=== PATIENT | female | born 1990 | race Caucasian/White ===

== ENCOUNTER 2024-09-27 10:09 | Outpatient (CLI) | payer OTHER, SELFPAY ==
--- OUTSIDE RECORDS SUMMARY | 2024-09-27 11:05 | XMS_ITS | Data Portability ---
[facility] Address [address] [place] [address] Care Team Providers Care Fire Eater Name Role Phone ADEEL PALMER Box Car Bracer [phone] Assessment No assessment recorded. Plan of Treatment Reminders Order Date Submit Date Provider Last Modified By Organization Details Last Modified Time Details Appointments None recorded . Lab pap, IG + reflex HPV 2022 023 JULES [facility], [address], [place], [address], 3 09:36:23 pregnanc y test, urine 2020 021 [email or web address] In-Office Order, Internal Use Only DO Not Attach Compendium DO Not Attach Compendium, Do Not Delete/merge, [id number] 1 10:44:58 urinalys is, dipstick 2020 021 [email or web address] In-Office Order, Internal Use Only DO Not Attach Compendium DO Not Attach Compendium, Do Not Delete/merge, [id number] 1 10:44:58 CT + NG + TV, DNA, urine/sw ab 2019 020 JULES [facility], [address], [address], [place], [address], 0 20:07:43 pregnanc y test, urine 2019 020 [email or web address] In-Office Order, Internal Use Only DO Not Attach Compendium DO Not Attach Compendium, Do Not Delete/merge, [id number] 0 13:21:29 urinalys is, dipstick 2019 020 [facility], Internal Use Only DO Not Attach Compendium DO Not Attach Compendium, Do Not Delete/merge, [id number] 0 13:21:29 urinalys is, dipstick 2017 018 [facility] Order, Internal Use Only DO Not Attach Compendium DO Not Attach Compendium, Do Not Delete/merge, [id number] 8 14:03:51 pregnanc y test, urine 2017 018 [facility] Order, Internal Use Only DO Not Attach Compendium DO Not Attach Compendium, Do Not Delete/merge, [id number] 8 14:03:51 Referral None recorded . Procedures None recorded . Surgeries None recorded . Imaging None recorded . Medication Orders multivit vivas tablet 2020 021 [id number], [address], [place], [id number], 3 14:47:21 Calcium with Vitamin D 600 mg-10 mcg (400 unit) tablet 2020 021 [facility] #[id number], [address], [place], [id number], 3 14:47:03 multivit vivas tablet 2019 020 [facility] #[id number], [address], [place], [place], [id number], 3 14:47:21 Calcium with Vitamin D 600 mg-10 mcg (400 unit) tablet 2019 020 [facility] #[id number], [address], [place], [place], [id number], 3 14:47:03 Nexplano n 68 mg subderma l implant 2019 020 [facility] #[id number], [address], [place], [place], [id number], 0 13:41:07 multivit vivas tablet 2017 018 [id number], [address], [place], [address], 3 14:47:21 calcium 600 mg (as carbonat e)-vitam in D3 20 mcg (800 unit) tablet 2017 018 [id number], [address], [place], [address], 0 12:19:10 Patient TargetsNo targets recorded. Patient Instructions Encounter Date Encounter Id Patient Instructions Last Modified By Organization Details Last Modified Time 07/14/2017 [id number] When You Want to Lose Weight: Care Instructions mwasserman Not available 07/14/2017 10:45:15 06/25/2020 [id number] When You Want to Lose Weight: Care Instructions mwasserman Not available 06/25/2020 12:46:21 A healthy lifestyle: care instructions mwasserman Not available 06/25/2020 12:46:21 01/28/2023 [id number] Well Visit, Ages 18 to 65: Care Instructions Not available 01/28/2023 15:15:34 A healthy lifestyle: care instructions Not available 01/28/2023 15:15:34 Reason for Referral None Reported. Results Created Date Observation Date Name Description Value Unit Range Abnormal Flag Note LastModifiedBy Organization Detail LastModifiedTime 08/23/19 21 08/23/2020 urina lysis , dipst ick Leukocytes Negati ve Not Available In-Office Order Internal Use Only DO Not Attach Compendium DO Not Attach Compendium, Do Not Delete/merge, [id number] 08/23/2020 10:08:49 08/23/19 21 08/23/2020 urina lysis , dipst ick Nitrite negati ve Not Available In-Office Order Internal Use Only DO Not Attach Compendium DO Not Attach Compendium, Do Not Delete/merge, 08/23/2020 10:08:49 08/23/19 21 08/23/2020 urina lysis , dipst ick Urobilinogen .2 Not Available In-Of fice Order Internal Use Only DO Not Attach Compendium DO Not Attach Compendium, Do Not Delete/merge, 08/23/2020 10:08:49 08/23/19 21 08/23/2020 urina lysis , dipst ick Protein Negati ve Not Available In-Office Order Internal Use Only DO Not Attach Compendium DO Not Attach Compendium, Do Not Delete/merge, 08/23/2020 10:08:49 08/23/19 21 08/23/2020 urina lysis , dipst ick pH 7.0 Not Available In-Office Order Internal Use Only DO Not Attach Compendium DO Not Attach Compendium, Do Not Delete/merge, 08/23/2020 10:08:49 08/23/19 21 08/23/2020 urina lysis , dipst ick Blood Negati ve Not Available In-Office Order Internal Use Only DO Not Attach Compendium DO Not Attach Compendium, Do Not Delete/merge, 08/23/2020 10:08:49 08/23/19 21 08/23/2020 urina lysis , dipst ick Specific Medina 1.020 Not Available In-Off ice Order Internal Use Only DO Not Attach Compendium DO Not Attach Compendium, Do Not Delete/merge, 08/23/2020 10:08:49 08/23/19 21 08/23/2020 urina lysis , dipst ick Ketone Negati ve Not Available In-Office Order Internal Use Only DO Not Attach Compendium DO Not Attach Compendium, Do Not Delete/merge, 08/23/2020 10:08:49 08/23/19 21 08/23/2020 urina lysis , dipst ick Bilirubin Negati ve Not Available In-Office Order Internal Use Only DO Not Attach Compendium DO Not Attach Compendium, Do Not Delete/merge, [id number] 08/23/2020 10:08:49 08/23/19 21 08/23/2020 urina lysis , dipst ick Glucose Negati ve Not Available In-Office Order Internal Use Only DO Not Attach Compendium DO Not Attach Compendium, Do Not Delete/merge, [id number] 08/23/2020 10:08:49 08/23/19 21 08/23/2020 pregn mary test, urine HCG negati ve Not Available In-Office Order Internal Use Only DO Not Attach Compendium DO Not Attach Compendium, Do Not Delete/merge, [id number] 08/23/2020 10:08:35 06/25/20 20 06/25/2020 urina lysis , dipst ick Leukocytes Trace Not Available In-Offi ce Order Internal Use Only DO Not Attach Compendium DO Not Attach Compendium, Do Not Delete/merge, [id number] 06/25/2020 12:24:31 06/25/20 20 06/25/2020 urina lysis , dipst ick Nitrite negati ve Not Available In-Office Order Internal Use Only DO Not Attach Compendium DO Not Attach Compendium, Do Not Delete/merge, [id number] 06/25/2020 12:24:31 06/25/20 20 06/25/2020 urina lysis , dipst ick Urobilinogen .2 Not Available In-Of fice Order Internal Use Only DO Not Attach Compendium DO Not Attach Compendium, Do Not Delete/merge, [id number] 06/25/2020 12:24:31 06/25/20 20 06/25/2020 urina lysis , dipst ick Protein Negati ve Not Available In-Office Order Internal Use Only DO Not Attach Compendium DO Not Attach Compendium, Do Not Delete/merge, [id number] 06/25/2020 12:24:31 06/25/20 20 06/25/2020 urina lysis , dipst ick pH 7.0 Not Available In-Office Order Internal Use Only DO Not Attach Compendium DO Not Attach Compendium, Do Not Delete/merge, [id number] 06/25/2020 12:24:31 06/25/20 20 06/25/2020 urina lysis , dipst ick Blood Negati ve Not Available In-Office Order Internal Use Only DO Not Attach Compendium DO Not Attach Compendium, Do Not Delete/merge, [id number] 06/25/2020 12:24:31 06/25/20 20 06/25/2020 urina lysis , dipst ick Specific Medina 1.020 Not Available In-Off ice Order Internal Use Only DO Not Attach Compendium DO Not Attach Compendium, Do Not Delete/merge, [id number] 06/25/2020 12:24:31 06/25/20 20 06/25/2020 urina lysis , dipst ick Ketone Negati ve Not Available In-Office Order Internal Use Only DO Not Attach Compendium DO Not Attach Compendium, Do Not Delete/merge, [id number] 06/25/2020 12:24:31 06/25/20 20 06/25/2020 urina lysis , dipst ick Bilirubin Negati ve Not Available In-Office Order Internal Use Only DO Not Attach Compendium DO Not Attach Compendium, Do Not Delete/merge, [id number] 06/25/2020 12:24:31 06/25/20 20 06/25/2020 urina lysis , dipst ick Glucose Negati ve Not Available In-Office Order Internal Use Only DO Not Attach Compendium DO Not Attach Compendium, Do Not Delete/merge, [id number] 06/25/2020 12:24:31 06/25/20 20 06/25/2020 pregn mary test, urine HCG negati ve Not Available In-Office Order Internal Use Only DO Not Attach Compendium DO Not Attach Compendium, Do Not Delete/merge, [id number] 06/25/2020 12:24:14 07/14/19 18 07/14/2017 pregn mary test, urine HCG negati ve Not Available In-Office Order Internal Use Only DO Not Attach Compendium DO Not Attach Compendium, Do Not Delete/merge, [id number] 07/14/2017 10:33:36 07/14/19 18 07/14/2017 urina lysis , dipst ick Leukocytes Small Not Available In-Offi ce Order Internal Use Only DO Not Attach Compendium DO Not Attach Compendium, Do Not Delete/merge, [id number] 07/14/2017 10:32:53 07/14/19 18 07/14/2017 urina lysis , dipst ick Nitrite negati ve Not Available In-Office Order Internal Use Only DO Not Attach Compendium DO Not Attach Compendium, Do Not Delete/merge, 07/14/2017 10:32:53 07/14/19 18 07/14/2017 urina lysis , dipst ick Urobilinogen .2 Not Available In-Of fice Order Internal Use Only DO Not Attach Compendium DO Not Attach Compendium, Do Not Delete/merge, 07/14/2017 10:32:53 07/14/19 18 07/14/2017 urina lysis , dipst ick Protein Negati ve Not Available In-Office Order Internal Use Only DO Not Attach Compendium DO Not Attach Compendium, Do Not Delete/merge, 07/14/2017 10:32:53 07/14/19 18 07/14/2017 urina lysis , dipst ick pH 7.0 Not Available In-Office Order Internal Use Only DO Not Attach Compendium DO Not Attach Compendium, Do Not Delete/merge, 07/14/2017 10:32:53 07/14/19 18 07/14/2017 urina lysis , dipst ick Blood Large Not Available In-Office Order Internal Use Only DO Not Attach Compendium DO Not Attach Compendium, Do Not Delete/merge, 07/14/2017 10:32:53 07/14/19 18 07/14/2017 urina lysis , dipst ick Specific Medina 1.010 Not Available In-Off ice Order Internal Use Only DO Not Attach Compendium DO Not Attach Compendium, Do Not Delete/merge, 07/14/2017 10:32:53 07/14/19 18 07/14/2017 urina lysis , dipst ick Ketone Negati ve Not Available In-Office Order Internal Use Only DO Not Attach Compendium DO Not Attach Compendium, Do Not Delete/merge, 07/14/2017 10:32:53 07/14/19 18 07/14/2017 urina lysis , dipst ick Bilirubin Negati ve Not Available In-Office Order Internal Use Only DO Not Attach Compendium DO Not Attach Compendium, Do Not Delete/merge, [id number] 07/14/2017 10:32:53 07/14/19 18 07/14/2017 urina lysis , dipst ick Glucose Negati ve Not Available In-Office Order Internal Use Only DO Not Attach Compendium DO Not Attach Compendium, Do Not Delete/merge, [id number] 07/14/2017 10:32:53 05/12/20 17 05/12/2017 pregn mary test, urine HCG negati ve Not Available In-Office Order Internal Use Only DO Not Attach Compendium DO Not Attach Compendium, Do Not Delete/merge, [id number] 05/12/2017 15:26:18 06/25/20 20 06/26/2020 CT + NG + TV, DNA, urine /swab chlamydia by VANDANA Negati ve negati ve Not Available [facility] ([facility]) [address] [place], [address], 06/26/2020 20:07:43 06/25/20 20 06/26/2020 CT + NG + TV, DNA, urine /swab gonococcus by VANDANA Negati ve negati ve Not Available [facility] ([facility]) [address] [place], [address], 06/26/2020 20:07:43 06/25/20 20 06/26/2020 CT + NG + TV, DNA, urine /swab trich vag by VANDANA Negati ve negati ve Not Available [facility] ([facility]) [address] [place], [address], 06/26/2020 20:07:43 01/29/20 23 01/28/2023 IGP,A PTIMA HPV,A GE GDLN age gdln acog testing 30-65 Not Available [facility] ([facility]) [address] [place], [address], 02/02/2023 09:36:23 01/29/20 23 01/30/2023 IGP, APTIM A HPV, RFX 16/18 ,45 HPV aptima Negati ve negati ve This nucle ic acid ampli ficat ion test detec ts fourt een high- risk HPV types (16,1 8,31, 33,35 ,39,4 5,51, 52,56 ,58,5 9,66, 68) witho ut diffe renti ation . Not Available [facility] ([facility]) [address] [facility] [address], [place], [address], 02/02/2023 09:36:24 01/29/20 23 02/02/2023 IGP, APTIM A HPV, RFX 16/18 ,45 diagnosis: Areli bhardwaj NEGAT KENNY FOR INTRA EPITH ELIAL LESIO N OR RALPH FITZGERALD . Not Available [facility] ([facility]) [address] [facility], [place], [address], 02/02/2023 09:36:24 01/29/20 23 02/02/2023 IGP, APTIM A HPV, RFX 16/18 ,45 specimen adequacy: Areli bhardwaj Satis facto ry for evalu ation . Endoc ervic al and/o r squam ous metap lasti c cells (endo cervi candido compo nent) are prese nt. Not Available [facility] ([facility]) [address] [facility] [address], [place], [address], 02/02/2023 09:36:24 01/29/20 23 02/02/2023 IGP, APTIM A HPV, RFX 16/18 ,45 clinician provided ICD10: Areli bhardwaj Z01.4 19 Not Available [facility] ([facility]) [address] [facility] [address], [place], [address], 02/02/2023 09:36:24 01/29/20 23 02/02/2023 IGP, APTIM A HPV, RFX 16/18 ,45 performed by: Areli Willson , Cytot felicity bhardwaj Not Available [facility] ([facility]) [address] [place], [address], 02/02/2023 09:36:24 01/29/20 23 02/02/2023 IGP, APTIM A HPV, RFX 16/18 ,45 . . Not Available [facility] ([facility]) [address] [place], [address], 02/02/2023 09:36:24 01/29/20 23 02/02/2023 IGP, APTIM A HPV, RFX 16/18 ,45 note: Commen t The Pap smear is a scree blanca test desyeison jackson to aid in the detec tion of guevara ligna nt and malig nant condi tions of the uteri ne cervi x. It is not a diagn ostic proce dure and shoul d not be used as the sole means of detec ting cervi candido cance r. Both false -posi tive and false -nega tive repor ts do occur . Not Available [facility] ([facility]) [address] [facility] [address], [place], [address], 02/02/2023 09:36:24 01/29/2002/02/2023 IGP, APTIM A HPV, RFX 16/18 ,45 test methodology: Commen t This liqui d based ThinP rep(R ) pap test was scree manuel with the use of an image guide sally altamirano. Not Available [facility] ([facility]) [address] [facility], [place], [address], 02/02/2023 09:36:24 01/29/2002/02/2023 IGP, APTIM A HPV, RFX 16/18 ,45 HPV genotype reflex Commen t Crite marquis not met, HPV Genot ype not perfo rmed. Not Available [facility] ([facility]) [address] [place], [address], 02/02/2023 09:36:24 Result Notes None recorded. Problems Name Problem SNOMED Code Status Onset Date Resolution Date Notes Provider Name and Address Organization Details Recorded Time [facility] [id number] Active Jon Elliott dam[place], [place] [facility] 6 10:53:01 Hirsutism 682671710 Active Jon damon [place] - [facility] 6 10:53:01 83559040 Completed 201603/03/2017 ASIYA Agarwal - [facility] 7 12:12:00 Vitamin D deficiency 80696812 Active 2016 Jon damon [place] - [facility] 7 10:19:01 Vitamin D deficiency 89330153 Completed 2016 Jon damon [place] - [facility] 7 10:19:01 Abnormal progesteron e 383125645 Active 2016 Jon damon [place] - [facility] 7 10:19:01 Abnormal progesteron e 082241876 Completed 2016 ASIYA Agarwal - [facility] 7 10:19:01 RhD negative 682637467 Completed 2016 Jon damon [place] - [facility] 7 10:19:01 RhD negative 882640840 Active 2016 Jon damon [place] - [facility] 7 10:19:01 Female sterilizati on Completed 201604/27/2017 ASIYA Agarwal - [facility] 7 10:20:06 Obesity 898322889 Active 2016 Jon damon [place] - [facility] 7 13:22:20 Problem Notes None recorded. Procedures Surgical History Date Name Laterality Status Provider Name and Address Organization Details Recorded Time 01/29/20 23 Date of Last Pap Smear completed Kathy Yao [place] - [facility] 01/28/2023 14:45:33 06/25/20 20 Control Implant Replacement completed Jon Gallagher [place] - [facility] 06/25/2020 12:45:24 05/12/20 17 Control Implant Insertion completed Jon BRADEN - [facility] 05/12/2017 15:01:16 04/08/20 16 Control Implant Removal completed Jon BRADEN - [facility] 04/08/2016 10:55:06/07/20 15 Control Implant Replacement completed Jon Gallagher [place] - [facility] 06/07/2015 16:04:00 Imaging Results None recorded. Procedure Notes None recorded. Medical Equipment None Reported. Allergies Allergen ID Allergen Name Allergen Category Reaction Reaction Severity Criticality Documentation Date Start Date Code Code System Note Provider Name and Address Organization Details Recorded Time 21792 Tegretol medicatio n rash mild Not available 08/23/2015 9 RxNorm Not Available Not Available Not Available Medications Name Sig Start Date Stop Date Status Note LastModified by Organization Details LastModified Time multivitami n tablet Take 1 tablet every day by oral route. 01/28 completed Not Available Not Available Not Available neomycin-po lymyxin-hyd rocort 3.5 mg/mL-10,00 0 unit/mL-1 % ear solution INSTILL 4 DROPS INTO AFFECTED EAR(S) BY OTIC ROUTE 3 TIMES PER DAY FOR 7 DAYS 06/25 completed Not Available Not Available Not Available doxycycline hyclate 100 mg capsule TAKE 1 CAPSULE BY MOUTH TWICE A DAY FOR 7 DAYS active Not Available Not Available No t Available ibuprofen 800 mg tablet TAKE 1 TABLET BY MOUTH EVERY 6 TO 8 HOURS NEEDED active Not Available Not Available No t Available fluconazole 150 mg tablet TAKE 1 TABLET BY MOUTH FOR ONE DOSE-REPE AT IN 1 WEEK 01/28 completed Not Available Not Available Not Available hydrocortis one 1 % topical ointment APPLY A THIN LAYER TO THE AFFECTED AREA(S) BY TOPICAL ROUTE 2 TIMES PER DAY 01/27 completed Not Available Not Available Not Available penicillin V potassium 500 mg tablet Take 1 tablet twice a day by oral route for 5 days. 01/27 completed Not Available Not Available Not Available triamcinolo ne acetonide 0.5 % topical ointment APPLY TO AFFECTED AREA TWICE A DAY active Not Available Not Available No t Available cimetidine 800 mg tablet Take 1 tablet every day by oral route. 08/18 completed Not Available Not Available Not Available ciprofloxac in 500 mg tablet TAKE 1 TABLET BY MOUTH EVERY 12 HOURS 01/28 completed Not Available Not Available Not Available Terazol 3 0.8 % vaginal cream Insert 1 applicato rful every day by vaginal route for 3 days. 08/18 completed Not Available Not Available Not Available Vitamin tablet Take 1 tablet every day by oral route as directed for 90 days. 05/12 completed Not Available Not Available Not Available oxycodone-a cetaminophe n 5 mg-325 mg tablet 05/12 completed Not Available Not Available Not Available amoxicillin 875 mg tablet TAKE 1 TABLET BY MOUTH EVERY 12 HOURS FOR 7 DAYS active Not Available Not Available No t Available cephalexin 500 mg capsule TAKE 1 CAPSULE BY MOUTH TWICE A DAY FOR 7 DAYS active Not Available Not Available No t Available diphenhydra mine 25 mg capsule Take 2 capsules every 4 hours by oral route. 07/14 completed Not Available Not Available Not Available oseltamivir 75 mg capsule TAKE 1 CAPSULE BY MOUTH TWICE A DAY FOR 5 DAYS 01/28 completed Not Available Not Available Not Available triamcinolo ne acetonide 0.1 % topical ointment 08/18 completed Not Available Not Available Not Available nystatin 100,000 unit/gram topical cream APPLY TO AFFECTED AREA TWICE A DAY 01/28 completed Not Available Not Available Not Available progesteron e micronized 200 mg capsule Take 1 capsule twice a day by oral route. 04/27 completed 340b Not Available Not Available Not Available fluticasone propionate 50 mcg/actuati on nasal spray,suspe nsion SPRAY 2 SPRAYS INTO EACH NOSTRIL EVERY DAY 01/28 completed Not Available Not Available Not Available amoxicillin 875 mg-potassiu m clavulanate 125 mg tablet TAKE 1 TABLET BY MOUTH TWICE A DAY active Not Available Not Available No t Available chlorhexidi ne gluconate 0.12 % mouthwash SWISH & SPIT 15 MILLILITE RS BY MOUTH 2 TIMES A DAY active Not Available Not Available No t Available RhoGAM Ultra-Filte red PLUS 1,500 unit (300 mcg) intramuscul ar syringe Inject 1 syringe by intramusc ular route. 04/27 completed Not Available Not Available Not Available Calcium with Vitamin D 600 mg-10 mcg (400 unit) tablet Take 1 tablet twice a day by oral route. 01/28 completed Not Available Not Available Not Available Nexplanon 68 mg subdermal implant Inject 1 implant by subcutane ous route. 2022 active Not Available Not Available Not Avai lable 28 mg iron-800 mcg tablet 05/12 completed Not Available Not Available Not Available calcium 600 mg (as carbonate)- vitamin D3 20 mcg (800 unit) tablet Take 1 tablet twice a day by oral route for 30 days. 06/25 completed Not Available Not Available Not Available Xulane 150 mcg-35 mcg/24 hr transdermal patch Appy 1 patch to skin weekly 08/18 completed Not Available Not Available Not Available Vitals Date Recorded Body height Body mass index (BMI) Body weight Systolic blood pressure Diastolic blood pressure Provider Name and Address Organization Details Last Updated DateTime 07/14/2017 152.4 cm 57.6 kg/m2 182778.7 5 g 112 mm[Hg] 74 mm[Hg] Kathy Yao [place] - [facility] 8 10:31:06 Date Recorded Body height Body mass index (BMI) Body weight Systolic blood pressure Diastolic blood pressure Provider Name and Address Organization Details Last Updated DateTime 06/25/2020 157.48 cm 61.5 kg/m2 107307.0 4 g 118 mm[Hg] 74 mm[Hg] Kathy Yao [place] - [facility] 0 12:30:22 Date Recorded Body height Body mass index (BMI) Body weight Systolic blood pressure Diastolic blood pressure Provider Name and Address Organization Details Last Updated DateTime 08/23/2020 157.48 cm 61.8 kg/m2 120973.2 2 g 112 mm[Hg] 78 mm[Hg] Kathy Yao [place] - [facility] 1 10:11:08 Date Recorded Body height Body mass index (BMI) Body weight Systolic blood pressure Diastolic blood pressure Provider Name and Address Organization Details Last Updated DateTime 01/28/2023 157.48 cm 54.9 kg/m2 687023.7 1 g 100 mm[Hg] 78 mm[Hg] Kathy Yao MA [facility] 3 14:53:01 Social History Question Answer Notes LastModified by Organizat ion Details LastModified Time Tobacco Smoking Status Never Smoker Not Available [employer] 05/01/2020 03:39:31 Do You Have An Advance Directive? No [id number] Information not available 05/01/2020 What Is Your Level Of Alcohol Consumption? Occasional [id number] Information not available 05/01/2020 Is Anesthesia Consult Planned? Yes Wants Epidural [email or web address] Information not available 11/11/2016 Is Blood Transfusion Acceptable In An Emergency? Yes [id number] Information not available 05/01/2020 What Is Your Level Of Caffeine Consumption? None [id number] Information not available 05/01/2020 Live With Cats/exposure To Cat Litter No [email or web address] Information not available 11/11/2016 How Much Tobacco Do You Chew? None [id number] Information not available 05/01/2020 Are You Currently Employed? Yes [id number] Information not available 05/01/2020 What Type Of Diet Are You Following? REGULAR [id number] Information not available 05/01/2020 Which Illicit Or Recreational Drugs Have You Used? None [id number] Information not available 05/01/2020 Do You Or Have You Ever Used E-cigarettes Or Vape? Never Used Electronic Cigarettes Information not available 06/25/2020 Education 12 Information no t available 05/15/2015 What Is The Highest Grade Or Level Of School You Have Completed Or The Highest Degree You Have Received? 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 No [id number] Information not available 05/01/2020 Frequent Air Travel No [email or web address] Information not available 11/11/2016 Illicit Drugs Pre- None Information not available 11/11/2016 How Many Years Have You Used Illicit Or Recreational Drugs? 0 [id number] Information not available 05/01/2020 Live Alone Or With Others? With Others Spouse, Brother And Daughter [email or web address] Information not available 08/18/2016 What Was The Date Of Your Most Recent Tobacco Screening? 01/28/2023 Information not available 01/28/2023 How Many Children Do You Have? 2 Information not available 06/25/2020 Performs Monthly Self-breast Exam? No Information not available 05/15/2015 Do You Use Protection During Sex? No [id number] Information not available 05/01/2020 What Is Your Relationship Status? [id number] Information not available 05/01/2020 Seat Belts Used Routinely Yes Information not available 05/15/2015 Are You Sexually Active? Yes [id number] Information not available 05/01/2020 Do You Have Smoke And Carbon Monoxide Detectors In Your Home? Yes [id number] Information not available 05/01/2020 Are You Passively Exposed To Smoke? No [email or web address] Information not available 11/11/2016 Do You Or Have You Ever Used Smokeless Tobacco? Never Used Smokeless Tobacco Information not available 06/25/2020 How Much Tobacco Do You Smoke? No [id number] Information not available 05/01/2020 Smoking Pre- No [email or web address] Information not available 11/11/2016 General Stress Level Low Information not available 05/15/2015 Do You Use Any Illicit Or Recreational Drugs? No Information not available 01/28/2023 Do You Use Sunscreen Routinely? Yes [id number] Information not available 05/01/2020 Supplements Pnv [email or web address] Information n ot available 11/11/2016 Has Tobacco Cessation Counseling Been Provided? Yes Information not available 01/28/2023 On What Date Was Tobacco Cessation Counseling Provided? 01/28/2023 Information not available 01/28/2023 How Many Years Have You Smoked Tobacco? 0 [id number] Information not available 05/01/2020 Do You Or Have You Ever Used Any Other Forms Of Tobacco Or Nicotine? No Information not available 01/28/2023 Sex: Unknown Functional Status Question Answer Note LastModified by Organizat ion Details LastModified Time What is your exercise level? Occasional [id number] Information not available 05/01/2020 Mental Status None recorded. Family History Relationship Description Onset Age of this Age Resolved Age Notes LastModified by Organization Details LastModified Time Mother Diabetes mellitus [email or web address] Not available 04/08 10:53:04 Maternal Grandmother Diabetes mellitus [email or web address] Not available 04/08 10:53:04 Maternal Grandmother Hypertensive disorder [email or web address] Not available 04/08 10:53:04 Medical History Condition Response Other N High Blood Pressure N Breast Cancer N Depression N Blood Clots N Lung Disease N Breast Problem N Anesthesia Complications N Headaches/Migraines N Anxiety Disorder N Muscle, Joint, or Bone Problems N Polyps N Infertility N Acid Reflux (GERD) N Cancer N Endometriosis N High Cholesterol N Liver Disease N Thyroid Problems N Kidney or Bladder Problems N GI Problems N Acne N Eating Disorder N Anemia N Diabetes N Ovarian Cancer N Blood Transfusions N Seizures/Epilepsy Y Abuse/Domestic Violence N Asthma N Hepatitis N Heart Disease N Pre-Eclampsia N Osteoporosis N Gynecological History Statement/Question Response Abnormal Pap N Flow Light Date of LMP 01/21/2023 On BCP's at Conception? N STIs/STDs N HPV Vaccine N Duration of Flow (days) 7 Age at Menarche 11 Current Control Method Implant Age at First Child 17 Frequency of Cycle (Q days) 28 Sexually Active? Y Menses Monthly Y Date of Last Pap Smear 01/28/2023 Sexual Problems? Y LMP Definite Desired Control Method Implant Obstetrics History GPAL:G 2 P 2 0 0 2 Type Value Multiple Births 0 Full Term 2 Induced 0 Spontaneous 0 Premature 0 Living 2 Ectopics 0 Total 2 Immunizations Vaccine Type Date Status Note Provider Nam e and Address Organization Details Recorded Time Tdap 01/12/2017 completed Not Available [employer] 07/16/2019 02:33:52 Past Encounters Encounter ID Performer Location Encounter Start Date Encounter Closed Date Diagnosis/Indication Diagnosis SNOMED-CT Code Diagnosis ICD10 Code Diagnosis Note [id number] Jon Henderson (SLIP MIXER) [address] [place] [address] 16952-052 0 05/15/2015 11:16:10 05/15/2015 14:37:27 Subcutaneous contraceptive implant palpable 895954163 Z30.49 [id number] GARRICK Christensen (SLIP MIXER) [address] [place] [address] 16629-648 0 06/07/2015 14:01:12 06/07/2015 15:42:34 Subcutaneous contraceptive implant palpable 492958460 Z30.49 Insertion of subcutaneous contraceptive 114138622 Z30.9 [id number] Jon Henderson (SLIP MIXER) [address] [place] [address] 04650-360 0 08/23/2015 09:37:20 08/23/2015 12:06:01 Family planning surveillance 953681459 Z30.09 Subcutaneo us contraceptive implant palpable 140227523 Z30.49 [id number] Jon Henderson (SLIP MIXER) [address] [place] [address] 80183-130 0 04/08/2016 10:02:02 04/08/2016 14:11:11 Subcutaneous contraceptive implant palpable 643045979 Z30.49 Family clara nning surveillance 919959804 Z30.09 [id number] GARRICK Christensen (SLIP MIXER) [address] [place] [address] 49856-698 0 08/04/2016 10:23:27 08/04/2016 12:29:36 Routine care 888152581 Z34.90 patient has several bottles of calcium supplement s at home [id number] THOMAS Rm (SLIP MIXER) [address] [place] [address] 80879-717 0 08/18/2016 09:41:00 08/18/2016 10:16:06 [id number] Jon Henderson (SLIP MIXER) [address] [place] [address] 46503-346 0 09/02/2016 11:52:13 09/03/2016 16:08:54 Routine care 577708876 Z34.90 patient has several bottles of calcium supplement s at home [id number] Jon Henderson (SLIP MIXER) [address] [place] [address] 55979-218 0 10/14/2016 12:03:17 10/22/2016 14:54:39 Routine care 373495868 Z34.90 Obesity 653378298 E66.9 atkins diet Candidiasis of vagina 72 939270 B37.3 [id number] Jon Henderson (SLIP MIXER) [address] [place] [address] 03622-874 0 11/11/2016 10:22:01 11/12/2016 15:14:21 Routine care 136512077 Z34.90 Obesity 156398627 E66.9 Candidiasis 38455971 B37 .9 Abnormal progesterone 13 6690709 R94.7 RhD negative 098759217 Z 01 Will receive RhoGam at 28 weeks. [id number] Jon Henderson (SLIP MIXER) [address] [place] [address] 45753-645 0 12/09/2016 11:44:03 12/09/2016 15:44:31 Routine care 353645372 Z34.90 [id number] Jon Henderson (SLIP MIXER) [address] [place] [address] 50502-085 0 01/12/2017 09:36:38 01/12/2017 12:00:31 Routine care 092236846 Z34.90 Diabetes m ellitus screening 037673063 Z13.1 Acute urin malgorzata tract infection 050064174 N39.0 RhD negative 668545334 Z .83 Will receive RhoGam at 28 weeks. Obesity 155907858 E66.9 [id number] Jon Henderson (SLIP MIXER) [address] [place] [address] 23687-536 0 01/27/2017 10:04:42 01/27/2017 11:34:29 Routine care 331047758 Z34.90 Female sterilization 608 66990 Z30.2 Tubal papers signed 01/27/2017 RhD negative 631363602 Z .83 Received RhoGam at 28 week visit. Abnormal progesterone 13 0705452 R94.7 Vitamin D deficiency 347 67786 E55.9 [id number] GARRICK Araujo (SLIP MIXER) [address] [place] [address] 26575-394 0 02/10/2017 10:08:21 02/10/2017 10:53:39 Routine care 092473391 Z34.90 Female sterilization 608 52159 Z30.2 Tubal papers signed 01/27/2017 Insomnia 963577471 G47.0 0 RhD negative 557937266 Z .83 Received RhoGam at 28 week visit. Abnormal progesterone 13 2314409 R94.7 [id number] THOMAS Boykin (SLIP MIXER) [address] [place] [address] 95827-979 0 02/24/2017 10:58:01 02/24/2017 11:02:16 [id number] Jon Henderson (SLIP MIXER) [address] [place] [address] 77777-916 0 03/03/2017 10:17:06 03/03/2017 12:43:16 Routine care 138532947 Z34.90 Female sterilization 608 48213 Z30.2 Tubal papers signed 01/27/2017 RhD negative 561225811 Z .83 Received RhoGam at 28 week visit. [id number] Jon Henderson (SLIP MIXER) [address] [place] [address] 85664-889 0 03/10/2017 10:09:04 03/10/2017 11:05:48 Routine care 977054767 Z34.90 MIL scheduled for 03/19/17. Female sterilization 608 10589 Z30.2 Tubal papers signed 01/27/2017, schedule for 03/20/17. Abnormal progesterone 13 3283823 R94.7 RhD negative 188952890 Z 83 Received RhoGam at 28 week visit. Vitamin D deficiency 347 89545 E55.9 Candidiasis 62934606 B37 .9 DEZ fluconazol e 150 mg and Nystatin 100,000 unit/gram. [id number] Jon Henderson (SLIP MIXER) [address] [place] [address] 04784-577 0 03/16/2017 12:06:42 03/16/2017 13:37:15 Routine care 680471774 Z34.90 MIL scheduled for 03/19/17. Female sterilization 608 34301 Z30.2 Tubal papers signed 01/27/2017, schedule for 03/20/17. RhD negative 879842710 Z .83 Received RhoGam at 28 week visit. Obesity 051593569 E66.9 [id number] Jon Henderson (SLIP MIXER) [address] [place] [address] 70889-281 0 04/27/2017 09:52:16 04/27/2017 14:36:59 care 912014269 Z39.2 Family clara nning surveillance 510188536 Z30.09 Exposure t o sexually transmissible disorder 690543082 Z20.2 [id number] Jon Henderson (SLIP MIXER) [address] [place] [address] 15187-171 0 05/12/2017 14:36:09 05/12/2017 17:18:42 Insertion of subcutaneous contraceptive 288039076 Z30.9 Family clara nning surveillance 525093748 Z30.09 [id number] Jon Henderson (SLIP MIXER) [address] [place] [address] 59285-742 0 07/14/2017 10:04:36 07/14/2017 13:55:14 Subcutaneous contraceptive implant palpable 669175570 Z30.49 Obesity 114372329 Z68.44 Family clara nning surveillance 519219383 Z30.09 [id number] GARRICK Bell (SLIP MIXER) [address] [place] [address] 79073-940 0 06/25/2020 11:57:59 06/27/2020 15:26:03 Removal of subcutaneous contraceptive done 6147608545 14918 Z98.890 Insertion of subcutaneous contraceptive 087011655 Z30.9 Family clara nning surveillance 076275350 Z30.09 [facility] risk of sexually transmitted infection 600493675 Z20.2 Obesity 807050021 Z68.44 [id number] Jon Henderson (SLIP MIXER) [address] [place] [address] 51428-242 0 08/23/2020 09:45:16 08/24/2020 14:15:19 Family planning surveillance 722728607 Z30.09 Subcutaneo us contraceptive implant palpable 555585834 Z30.49 [id number] AUTSEN BABCOCK (SLIP MIXER) [address] [place] [address] 49162-185 0 01/28/2023 14:14:58 02/02/2023 11:32:39 Gynecologic examination 60047627 Z01.419 Cervical cancer screening: Last Pap 04/27/17 NILM/HPV neg, updated todayBreas t cancer screening: Reviewed recommenda tions for initiation at age 40 with annual screening. Discussed SBESTI screening: declines. Safe sex practices discussed. Contracept ion: Nexplanon, due for replacemen t ie t/exercise : Counseled regarding importance of physical activity, healthy diet and appropriat e calcium intake. Morbid obesity 892562391 E66.01 BMI 54.9. Continue diet and increase exercise. Patient has lost 50 lb since starting her keto diet. Health Concerns Section Related Observation LastModified by Organization Detai ls LastModified Time None Recorded Concern Status LastModified by Organization Details LastModified Time None Recorded Advance Directives Directive N: Payers Encounter Date Sequence Insurance Name Policy Number Policy Wayne Covered Member ID Wayne Member ID Guarantor Name 07/14/2017 1 [facility] (MEDICAID HMO) [id number] Shima Reilly [id number] Shima Reilly 07/14/2017 1 [facility] [id number] Shima Reilly [id number] Shima Reilly 06/25/2020 1 [place] [id number] Shima Reilly [id number] Shima Reilly 06/25/2020 1 [place] [id number] Shima Reilly [id number] Shima Reilly 08/23/2020 1 [place] [id number] Shima Reilly [id number] Shima Reilly 08/23/2020 1 [place] [id number] Shima Reilly [id number] Shima Reilly 01/28/2023 1 [place] [facility] (MEDICAID REPLACEMENT - HMO) [id number] Shima Reilly [id number] Shima Reilly 01/28/2023 1 [place] [employer] Shima Reilly [id number] Shima Reilly Notes Date Note Type Note Provider Name and Address Organization Details Recorded Time 07/14/2017 text/html OCP CheckReporte d bypatient.Associate d Symptoms:regular menses; no BTB menses; no side effects 27 y/o CF here for Nexplanon check. First day of LMP on 05/09/17. Jon [place], [place] - [facility] 07/14/2017 10:47:06 06/25/2020 text/html OCP CheckReporte d bypatient.Associate d Symptoms:regular menses; no BTB menses; no side effects 30 y/o CF here for Nexplanon replacement. GARRICK Bell, [place] - [facility] 06/25/2020 13:42:20 08/23/2020 text/html OCP CheckReporte d bypatient.Associate d Symptoms:regular menses; no BTB menses; no side effects 30 y/o CF with history of seizures, UTIs, abnormal progesterone, obesity, and Rh negative presents to clinic for a Nexplanon check. Jon Elliott dam[place], [place] - [facility] 08/24/2020 07:01:47 01/28/2023 text/html Annual GYNReport ed bypatient.History:n o gynecologic complaints Menstrual cycle:Normal menses (LMP 01/21/23) Urinary symptoms:No hematuria; No incontinence Vulva:No genital lesion Vagina:Normal vaginal discharge Breast:No breast pain; No breast lump; No nipple discharge Current Contraception:Satis fied with current contraception; Implanon Sexual complaints:No sexual complaints; No pain during intercourse; Normal libido Menopausal Symptoms:No menopausal symptoms; Normal vaginal lubrication Psychological symptoms:No depression; No anxiety; No PMDD Preventive measures:Encourage self breast examination; Encourage regular exercise; Encourage no tobacco use; Encourage regular mammograms starting age 40 Ms Reilly is a 33 yo F, , presents today for her annual wellness as well as routine pap. Last pap was in 2016, which was normal. Of note patient recently started a keto diet, lost approx 50 pounds and is now having regular cycle. Bleeding is normal volume. Patient would like to have a f/u visit in may to have her nexplanon replaced. AUSTEN BABCOCK Attn: Accounting[address] [place], [address], [facility] [place] [facility] [place] 01/28/2023 16:30:48 OBGyn Episode Ob Episode Information Episode Created Date Number of Fetuses Patient Bloodtype Patient rh Status Prepregnancy Weight lbs Domestic Partner Domestic Partner Phone Father Name Four Slide Machine Setter Status 05/15/20 15 1 CLOSED Fetus Data First Name Last Name Admitted to NICU Weight (g) Sex Living Outcome Pediatric Complications Fetus ID Race Codes Race Delivery Type 3005.04 7 F Full Term [id number] Vaginal Prince Calculation Initial Prince Date Initial Exam Date Initial Exam Provider Initial Ultrasound Date Last Menstrual Period Date Ultra Sound Weeks Gestation 0 Eighteen To Twenty Week Prince Update Ultra Sound Date Fundal Height At Umbil Quickening Date Ultra Sound Latest Weeks Gestation Final Prince Confirmed By Final Prince Confirmed Date Final Prince Date Ultra Sound Latest Days Gestation 0 0 Menstrual History Last Menstrual Date Menses Monthly On Bcp Conception Prior Menses Frequency Hcg Plus Date Menarche Onset Age Delivery Information Delivery Date Delivery Type Labor Anesthesia Weeks Gestation Incision Type Labor Labor Length Hrs Delivered By Post Complications Tubal Sterilization Discharge Date Comments 8 Regional- idural 40 Discharge Information Feeding Method Contraceptive Method Maternal HG B and HCT Levels Ob Episode Information Episode Created Date Number of Fetuses Patient Bloodtype Patient rh Status Prepregnancy Weight lbs Domestic Partner Domestic Partner Phone Father Name Four Slide Machine Setter Status 08/04/19 17 1 O Negative [address] [place] CLOSED Fetus Data First Name Last Name Admitted to NICU Weight (g) Sex Living Outcome Pediatric Complications Fetus ID Race Codes Race Delivery Type Bobby Pool r false 3770.48 33 M true Full Term 24035 2106-3 White Vaginal Problems Problem Notes having a baby boy, Bobby Reilly, vaginal with epidural, bottle feeding most likely, might try to pump but not sure, circumcision is YES, Four Slide Machine Setter [facility]EL, PPBC thinking ppbtl papers signed 01/27/2017 Jt FELIZ 01/27/2017 mds 03/10/2017 sdmaPatient was PPBTL not going to pump 03/16/2017 garrick lyons Problem Name Start Date End Date Resolution Snomed Code Not e Vitamin D deficiency 08/19/2016 07099681 RhD negative 08/19/2016 221596650 Abnormal progesterone 08/19/2016 2522797 00 Prince Calculation Initial Prince Date Initial Exam Date Initial Exam Provider Initial Ultrasound Date Last Menstrual Period Date Ultra Sound Weeks Gestation 03/22/2017 08/04/2016 mark 08/18/2016 06/16/2016 9 Eighteen To Twenty Week Prince Update Ultra Sound Date Fundal Height At Umbil Quickening Date Ultra Sound Latest Weeks Gestation Final Prince Confirmed By Final Prince Confirmed Date Final Prince Date Ultra Sound Latest Days Gestation 08/18/19 17 9 maksim 10/14/2016 03/22/20 17 1 Pre-kayla Flowsheet Flowsheet Date 08/04/2016 Cardoza Score Blood Edema Fundus Height Fundus Units Glucose Ketones Leukocytes Nitrite Labor Signs Protein Cervic Dilation Cervic Effacement Cervic Station neg none 8 cm none negative none neg Type Weight in lbs Pre/Post Dialysis Refused 245.534625917846 BP Diastolic BP Location Tested BP Systolic BP Type 70 118 sitting Fetus Heart Rate Present Fetus Movement A No Comments has been taking progesterone since 4 weeks . US order given today, instructed to wait a few weeks to get it done. Flowsheet Date 08/18/2016 Cardoza Score Blood Edema Fundus Height Fundus Units Glucose Ketones Leukocytes Nitrite Labor Signs Protein Cervic Dilation Cervic Effacement Cervic Station Type Weight in lbs Pre/Post Dialysis Refused BP Diastolic BP Location Tested BP Systolic BP Type Fetus Heart Rate Present Fetus Movement Comments Flowsheet Date 09/02/2016 Cardoza Score Blood Edema Fundus Height Fundus Units Glucose Ketones Leukocytes Nitrite Labor Signs Protein Cervic Dilation Cervic Effacement Cervic Station neg none 11 wks none negative none neg Type Weight in lbs Pre/Post Dialysis Refused 250.975608437340 BP Diastolic BP Location Tested BP Systolic BP Type 58 110 sitting Fetus Heart Rate Present A 151 Present Fetus Movement A No Comments us Flowsheet Date 10/14/2016 Cardoza Score Blood Edema Fundus Height Fundus Units Glucose Ketones Leukocytes Nitrite Labor Signs Protein Cervic Dilation Cervic Effacement Cervic Station Type Weight in lbs Pre/Post Dialysis Refused BP Diastolic BP Location Tested BP Systolic BP Type Fetus Heart Rate Present Fetus Movement Comments Flowsheet Date 11/11/2016 Cardoza Score Blood Edema Fundus Height Fundus Units Glucose Ketones Leukocytes Nitrite Labor Signs Protein Cervic Dilation Cervic Effacement Cervic Station neg none 21 cm none trace none neg Type Weight in lbs Pre/Post Dialysis Refused 270.52570541805 BP Diastolic BP Location Tested BP Systolic BP Type 68 120 sitting Fetus Heart Rate Present A 145 Present Fetus Movement A Yes Comments level 2 US ordered today Flowsheet Date 12/09/2016 Cardoza Score Blood Edema Fundus Height Fundus Units Glucose Ketones Leukocytes Nitrite Labor Signs Protein Cervic Dilation Cervic Effacement Cervic Station Type Weight in lbs Pre/Post Dialysis Refused 276.377922515472 BP Diastolic BP Location Tested BP Systolic BP Type 62 120 sitting Fetus Heart Rate Present Fetus Movement Comments Flowsheet Date 01/12/2017 Cardoza Score Blood Edema Fundus Height Fundus Units Glucose Ketones Leukocytes Nitrite Labor Signs Protein Cervic Dilation Cervic Effacement Cervic Station trace none 40 cm none small none neg Type Weight in lbs Pre/Post Dialysis Refused 285.001710933814 BP Diastolic BP Location Tested BP Systolic BP Type 76 128 sitting Fetus Heart Rate Present A 136 Present Fetus Movement A Yes Comments TDap given, 1hr GTT, Materni ty belt provided Flowsheet Date 01/27/2017 Cardoza Score Blood Edema Fundus Height Fundus Units Glucose Ketones Leukocytes Nitrite Labor Signs Protein Cervic Dilation Cervic Effacement Cervic Station neg none 30 cm none negative none neg Type Weight in lbs Pre/Post Dialysis Refused 287.546147160202 BP Diastolic BP Location Tested BP Systolic BP Type 68 124 Fetus Heart Rate Present A 138 Present Fetus Movement A Yes Comments 1hr GTT negative. Rhogham gi ace at 28 week visit. Tdap given 01/12/2017. Plan for vaginal delivery with epidural. 3D US at [place]. Flowsheet Date 02/10/2017 Cardoza Score Blood Edema Fundus Height Fundus Units Glucose Ketones Leukocytes Nitrite Labor Signs Protein Cervic Dilation Cervic Effacement Cervic Station trace none 34 wks none negative Cramping neg Type Weight in lbs Pre/Post Dialysis Refused 288.546564627786 BP Diastolic BP Location Tested BP Systolic BP Type 76 118 sitting Fetus Heart Rate Present A 139 Present Fetus Movement A Yes Comments 34.2 week DIMITRI c/o trouble sl eeping and contractions. RH neg. Rhogam given. Flowsheet Date 02/24/2017 Cardoza Score Blood Edema Fundus Height Fundus Units Glucose Ketones Leukocytes Nitrite Labor Signs Protein Cervic Dilation Cervic Effacement Cervic Station Type Weight in lbs Pre/Post Dialysis Refused BP Diastolic BP Location Tested BP Systolic BP Type Fetus Heart Rate Present Fetus Movement Comments Flowsheet Date 03/03/2017 Cardoza Score Blood Edema Fundus Height Fundus Units Glucose Ketones Leukocytes Nitrite Labor Signs Protein Cervic Dilation Cervic Effacement Cervic Station neg none 39 cm none negative none trace 0cm 0% -4 Type Weight in lbs Pre/Post Dialysis Refused 295.198098731899 BP Diastolic BP Location Tested BP Systolic BP Type 66 116 sitting Fetus Heart Rate Present A 150 Present Fetus Movement A Yes Comments Flowsheet Date 03/10/2017 Cardoza Score Blood Edema Fundus Height Fundus Units Glucose Ketones Leukocytes Nitrite Labor Signs Protein Cervic Dilation Cervic Effacement Cervic Station neg 1+ 39 cm none negative none trace 0cm 80% -3 Type Weight in lbs Pre/Post Dialysis Refused 299.7388300655 BP Diastolic BP Location Tested BP Systolic BP Type 68 128 sitting Fetus Heart Rate Present A 135 Present Fetus Movement A Yes Comments MIL on 03/19/17 and PPTL on . Flowsheet Date 03/16/2017 Cardoza Score Blood Edema Fundus Height Fundus Units Glucose Ketones Leukocytes Nitrite Labor Signs Protein Cervic Dilation Cervic Effacement Cervic Station neg none 44 cm none negative none neg 0cm 50% - 3 Type Weight in lbs Pre/Post Dialysis Refused 303.926520053924 BP Diastolic BP Location Tested BP Systolic BP Type 66 110 sitting Fetus Heart Rate Present A 138 Present Fetus Movement A Yes Comments MIL on 03/19/17 and PPTL on Flowsheet Date 04/27/2017 Cardoza Score Blood Edema Fundus Height Fundus Units Glucose Ketones Leukocytes Nitrite Labor Signs Protein Cervic Dilation Cervic Effacement Cervic Station Type Weight in lbs Pre/Post Dialysis Refused 293.088580457936 BP Diastolic BP Location Tested BP Systolic BP Type 65 105 sitting Fetus Heart Rate Present Fetus Movement Comments Menstrual History Last Menstrual Date Menses Monthly On Bcp Conception Prior Menses Frequency Hcg Plus Date Menarche Onset Age 1206/16/2016 true false 30 201 7 13 Genetic Screening And Infection History Question Response Note Patient's Age Will Be 35 Yea rs Or Older At Estimated Date of Delivery false Thalassemia (Swedish, Citizen Of [place], Mediterranean, Or Background): MCV < 80 false Neural Tube Defect (Meningom yelocele, Spina Bifida, Or Anencephaly) false Congenital Heart Defect false Down Syndrome false Stuart-Sachs (eg, Christian, Cajun, German-[place]) f alse Xiomara Disease false Sickle Cell Disease Or Trait () false Hemophilia Or Other Blood Disorders false Muscular Dystrophy false Cystic Fibrosis false Corona's Chorea false Mental Retardation/Autism false If Yes, Was Person Tested For Fragile X? false Other Inherited Genetic Or Chromosomal Disorder false Maternal Metabolic Disorder (eg, Type 1 Diabetes , PKU) false Patient Or Baby's Father Had A Child With Defects Not Listed Above false Recurrent Loss, Or A Stillbirth false Medications (including Suppl ements, Vitamins, Herbs, OTC Drugs), Illicit/Recreational Drugs, Alcohol true v itamin If Yes, Agent(s) And Strength/Dosage false Any Other Genetic History false Live With Someone With TB Or Exposed To TB false Patient Or Partner Has History Of Genital Herpes false Rash Or Viral Illness Since Last Menstrual Perio d false History Of STD, Gonorrhea, Chlamydia, HPV, Syphi lis false Other Infection History false Plans and Education First Trimester Discussed Date Discussion Item Discussion Note Discuss ed By 01/27/2017 Anticipated course o f care [facility] 08/18/2016 Alcohol Denies [email or web address] 08/18/2016 Intimate partner violence Patient feels s afe [email or web address] 08/18/2016 Environmental/work hazards april [email or web address] 01/27/2017 Screening for aneuploidy tariq hanson 08/18/2016 Nutrition counseling ; special diet; dietary precautions (mercury, listeriosis) [email or web address] 08/18/2016 Childbirth classes/h ospital facilities given handout at initial ob visit [email or web address] 01/21/2017 HIV and other routin e tests at initial ob visits [id number] 01/27/2017 Risk factors identif ied by history [facility] 08/18/2016 Weight gain counseling forrest gaoLuna 08/18/2016 Exercise [id number] 01/27/2017 Teratogens [facility] 08/18/2016 Use of any medicatio ns (including supplements, vitamins, herbs, or OTC drugs) Safe medication list given at first visit. [id number] 08/18/2016 Bottle-feeding. May attempt to breast feed [id number] 08/18/2016 Sexual activity [place] [address] 08/18/2016 Tobacco/smoking cess ation counseling (ask, advise, assess, assist, and arrange) [email or web address] 08/18/2016 Illicit/recreational drugs Denies april [id number] 08/18/2016 Dental care given dental con sent at initial ob visit [id number] 08/18/2016 Travel 08/18/2016 Seat belt use [id number] 01/27/2017 Indications for ultrasonography [facility] 08/18/2016 Avoidance of saunas or hot tubs [id number] 08/18/2016 Toxoplasmosis precau tions (cats/raw meat) [place] [address] Second Trimester Discussed Date Discussion Item Discussion Note Discuss ed By 08/18/2016 Selecting a care provider [facility] [place] [address] 08/18/2016 family planning/tubal sterilization Implant or Mirena pt is unsure at this time pt signed tubal papers 01/27/2017 [id number] 01/27/2017 Signs and symptoms o f labor wtc/wlb given [id number] Third Trimester Discussed Date Discussion Item Discussion Note Discuss ed By 08/18/2016 Anesthesia plans Epidural 08/18/2016 Circumcision Yes 01/27/2017 movement monitoring given kick coun ts [id number] 08/18/2016 Breast-feeding [email or web address] 01/27/2017 Labor signs wtc/wlb [email or web address] 08/18/2016 depression No history jgarre tt27 02/10/2017 Family medical leave or disability forms fmla papers release form for short term disability wants to start 03/16/2017 [id number] Trial of labor after (TOLAC) counseling Vaginal delivery with last Delivery Information Delivery Date Delivery Type Labor Anesthesia Weeks Gestation Incision Type Labor Labor Length Hrs Delivered By Post Complications Tubal Sterilization Discharge Date Comments 7 [facility] Gallagher None false 03/21/2017 [facility] Discharge Information Feeding Method Contraceptive Method Maternal HG B and HCT Levels Bottle Tubal
--- OUTSIDE RECORDS SUMMARY | 2024-09-27 11:05 | XMS_ITS | Clinical Summary ---
Author Organization [facility] Address [address] [place] [address] Care Team Providers Care Quarter Seamer Name Role Phone Humera Ellis MD Primary Care Provider [phone] Source Comments [facility],non-owned Affiliates and Associated Physician Practices is amultiple site organization consisting of ambulatory clinics and hospital sitesin [place], [place], [place] and [place]. This disclosure is being madepursuant to the Care Everywhere program and may not contain all information available regarding this patient. Last updated 18.[facility] Active Problems Problem Noted Date Diagnosed Date complicated by obesity 01/06/2017 Encounter for ultrasound to check growth 0 01/06/2017 Social History Tobacco Use Types Packs/Day Years Used Date Smoking Tobacco: Never Assessed Sex and Gender Information Value Date Recorded Sex Assigned at Not on file Gender Identity Not on file Sexual Orientation Not on file Plan of Treatment Health Maintenance Due Date Last Done Comments HIV SCREENING 12/31/2002 HEPATITIS C SCREENING 12/27/2005 DTAP/TDAP/TD VACCINES (1 - Tdap) 12/31/2006 HEPATITIS B VACCINE (1 of 3 - 19+ 3-dose series) 12/31/2006 COVID-19 VACCINE ( - 2023-2 5 season) 2024 INFLUENZA VACCINE (#1) 2024 DEPRESSION SCREENING 06/29/2024 ZOSTER VACCINE (1 of 2) 12/31/2037 HIB VACCINE Aged Out No longer eligi ble based on patient's age to complete this topic HPV VACCINE Aged Out No longer eligi ble based on patient's age to complete this topic MENINGOCOCCAL (Group B) VACC INE SHARED DECISION-MAKING Aged Out No longer eligibl e based on patient's age to complete this topic MENINGOCOCCAL GROUPS A/C/Y/W VACCINE Aged Out No longer eligible b ased on patient's age to complete this topic PNEUMOCOCCAL VACCINE Aged Out No long er eligible based on patient's age to complete this topic Advance Directives Documents on File Type Date Recorded 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 [id number] PCP - General Family Medicine 11/11/16
--- OUTSIDE RECORDS SUMMARY | 2024-09-27 11:05 | XMS_ITS | Clinical Summary ---
Author Organization [facility] Address [address] [place] [id number] Care Team Providers Care Faith Doctor Name Role Phone None, Provider Primary Care Provider Unavaila ble Allergies Active Allergy Reactions Criticality Noted Date Comments Carbamazepine Rash Low 07/24/2023 Medications No known medications Social History Tobacco Use Types Packs/Day Years Used Date Smoking Tobacco: Never Smokeless Tobacco: Never Tobacco Cessation:Counseling Given: Not Answered Alcohol Use Standard Drinks/Week Comments Never 0 (1 standard drink = 0.6 oz pur e alcohol) Comments Unknown Sex and Gender Information Value Date Recorded Sex Assigned at Not on file Legal Sex Female 5:35 PM PROP SAWYER Gender Identity Not on file Sexual Orientation Not on file Last Filed Vital Signs Vital Sign Reading Time Taken Comments Blood Pressure 138/75 07/24/2023 9:27 PM PROP SAWYER Pulse 81 07/24/2023 9:27 PM PROP SAWYER Temperature 37 C (98.6 F) 07/24/2023 6:07 PM PROP SAWYER Respiratory Rate 18 07/24/2023 9:27 PM PROP SAWYER Oxygen Saturation 100% 07/24/2023 9:27 PM PROP SAWYER Inhaled Oxygen Concentration - - Weight 137.8 kg (303 lb 12.7 oz) 07/24/2023 6:07 PM PROP SAWYER Height 157.5 cm (5' 2 ) 07/24/2023 6:07 PM PROP SAWYER Body Mass Index 55.56 07/24/2023 6:07 PM PROP SAWYER Plan of Treatment Health Maintenance Due Date Last Done Comments Cervical Cancer Screening Pap Smear (Age 30 to 64) Every 3 Years 1988 Annual Physical 12/31/1990 Hepatitis C 12/31/2005 Hepatitis B Vaccines (1 of 3 - 19+ 3-dose series) 12/31/2006 Cervical Cancer Screening Pap with HPV Testing (Age 30 to 64) Every 5 Years 12/31/2017 Cervical Cancer Screening with HPV 12/31/2017 COVID-19 Vaccine ( season) 2024 01/15/2021, 12/25/2020 DTaP, Tdap and Td Vaccines (6 - Td or Tdap) 01/27/2027 01/27/2017, 01/12/2017, 07/20/1992, Additional history exists HPV Vaccines Aged Out No longer eligi ble based on patient's age to complete this topic Meningococcal B Vaccine Aged Out No l onger eligible based on patient's age to complete this topic Meningococcal Vaccine Aged Out No keshawn juancarlos eligible based on patient's age to complete this topic Pneumococcal Vaccine: Pediatrics (0 to 5 Years) and At-Risk Patients (6 to 64 Years) Aged Out No longer eligible based on patient's age to complete this topic RSV Immunizations Under 20 Months Aged Out No longer eligible based on patient's age to complete this topic [place] [address] [place] [address] [facility] Care Teams Faith Doctor Relationship Specialty Start Date End Date None, Provider, PCP - General UNKNOWN PHYSICIAN SPECIALTY 07/24/23
[2024-09-27 14:00] LABS: Basophils Absolute Auto 0.1 K/mm3 (0.0-0.1); Basophils Percent Auto 0.6 % (0.2-1.2); Eosinophils Absolute Auto 0.2 K/mm3 (0-0.3); Eosinophils Percent Auto 2.1 % (0-4.4); Hematocrit 48.8 % (37.0-47.0); Hemoglobin 15.5 g/dL (12.0-15.0); Immature Granulocyte Absolute 0.03 K/mm3 (0.00-0.031); Immature Granulocyte Percent A 0.3 % (0-0.5); Immature Platelet Fraction Pct 5.2 % (0.9-11.2); Lymphocytes Absolute Auto 2.37 K/mm3 (0.9-3.2); Lymphocytes Percent Auto 26.8 % (18.3-44.2); Mean Corpuscular HGB Conc 31.8 g/dl (32-36); Mean Corpuscular Hemoglobin 29.2 pg (26-34); Mean Corpuscular Volume 91.9 fl (80-100); Mean Platelet Volume 10.5 fl (7.4-10.4); Monocytes Absolute Auto 0.5 K/mm3 (0.1-0.6); Monocytes Percent Auto 5.2 % (2.6-8.5); Neutrophils Absolute Auto 5.8 K/mm3 (1.3-6.7); Platelet Count Result 207 k/mm3 (150-375); Red Blood Count 5.31 M/mm3 (4.2-5.4); Red Cell Distribution Width 11.9 % (11.5-14.5); White Blood Count 8.9 K/mm3 (4.5-10.0)
[2024-09-27 14:29] LABS: Platelet Estimate Adequate (Adequate); Schistocytes None Seen
[2024-09-27 14:30] LABS: Alanine Aminotransferase 34 U/L (6-35); Albumin Level 4.3 g/dL (3.5-5.1); Alkaline Phosphatase 94 U/L (38-126); Anion Gap 10 mmol/L (4-12); Aspartate Amino Transferase 61 U/L (14-36); Bilirubin,Total 0.9 mg/dL (0.2-1.3); Blood Urea Nitrogen 10 mg/dL (7-17); Calcium 9.1 mg/dL (8.4-10.2); Carbon Dioxide 24 mmol/L (22-30); Chloride 103 mmol/L (98-107); Cholesterol 175 mg/dL (0-200); Estimated Glomerular Filt Rate > 60; Glucose 85 mg/dL (65-110); HDL Direct 37 mg/dL; Potassium 4.5 mmol/L (3.4-5.0); Sodium 137 mmol/L (137-145); Triglycerides 126 mg/dL (<150)
[2024-09-27 14:40] LABS: LDL Cholesterol Direct 102 mg/dL
[2024-09-27 15:18] LABS: Free T4 Free Thyroxine 1.43 ng/dL (0.78-2.19)
[2024-09-27 15:19] LABS: Vitamin D 25 Hydroxy < 12.8 ng/mL
[2024-09-27 16:56] LABS: Hemoglobin A1C 5.2 % (<5.7)
[2024-09-28 14:49] LABS: Insulin Level Total 22.9 uIU/mL
== END 2024-09-27 10:10 | disposition home or self-care (01) ==
LOC: ANHGOSHLAB 10:10
PROVIDERS: PCP Clinical Nurse Specialist; Visit Provider Clinical Nurse Specialist
DX: E55.9 Vitamin D deficiency, unspecified (principal); E66.01 Morbid (severe) obesity due to excess calories; G40.909 Epilepsy, unspecified, not intractable, without status epilepticus; R73.01 Impaired fasting glucose; Z13.220 Encounter for screening for lipoid disorders; Z13.228 Encounter for screening for other metabolic disorders; Z68.44 Body mass index [BMI] 60.0-69.9, adult
CPT/HCPCS: 36415; 80053; 80061; 82306; 83036; 83525; 84403; 84439; 84443; 85025; 85055